=== PATIENT | female | born 1975 | race Caucasian/White ===

== ENCOUNTER 2016-08-15 20:06 | Emergency (ER) | payer BC ==
[~2016-08-15 20:06] MED LIST: Iopamidol 370 76% 100 ML VIAL ONE
[2016-08-15] MEDS ORDERED: Mag-Al Plus 1200 MG/1200 MG/120 MG/30 ML UDCUP ONE ×2 (20:12→20:14)
[2016-08-15] MEDS ORDERED: Lidocaine Viscous Sol 2% 15 ml UD Cup ONE (20:12)
[2016-08-15] MEDS ORDERED: Fentanyl 100 MCG/2 ML VIAL ONE ×2 (20:20→20:44)
[2016-08-15] MEDS ORDERED: Pantoprazole 40 MG VIAL ONE (20:23)
[2016-08-15] MEDS ORDERED: Ondansetron HCl/PF 4 MG/2 ML Vial ONE (20:25)
[2016-08-15 20:39] LABS: #Lymphocytes 1.2 thou/uL (1.20-3.40); #Monocytes 0.6 thou/uL (0.11-0.59); %Basophils 0.4 % (0.0-1.0); %Eosinophils 0.2 % (0.0-10.0); %Lymphocytes 9.1 % (21.0-51.0); %Monocytes 4.8 % (0.0-10.0); %Neutrophils 85.6 % (42.0-75.0); Hemoglobin 14.9 g/dL (12.0-16.0); Mean Corpuscular HGB CONC 32.1 g/dL (32.0-36.0); Mean Corpuscular Hemoglobin 31.3 pg (27.0-31.0); Mean Corpuscular Volume 97.4 fl (81.0-99.0); Mean Platelet Volume 5.8 fL (7.4-10.4); Platelet Count 414 thou/uL (130-400); RBC Distribution Width 12.3 % (11.5-14.5); Red Blood Cell (RBC) Count 4.77 mill/uL (4.20-5.40); White Blood Cell (WBC) Count 12.8 thou/uL (4.8-10.8)
[2016-08-15] MEDS ORDERED: Promethazine HCl 25 MG/ML VIAL ONE (20:46)
[2016-08-15] MEDS ORDERED: Sodium Chloride 0.9% 100 ML ONE (20:47)
[2016-08-15 20:51] LABS: ALT (SGPT) 562 U/L (0-55); AST (SGOT) 489 U/L (5-34); Albumin 4.5 g/dL (3.5-5.0); Alkaline Phosphatase 173 U/L (40-150); Anion Gap 19 mmol/L (10-20); BUN (Urea Nitrogen) 11 mg/dL (7.0-18.7); Bilirubin, Total 2.3 mg/dL (0.2-1.2); Calc. Creatinine Clearance 0 mL/min (70-130); Calcium 9.4 mg/dL (7.8-10.44); Carbon Dioxide 25 mmol/L (22-29); Chloride 104 mmol/L (98-107); Estimated GFR-MDRD 70; Globulin 3.8 g/dL (2.4-3.5); Glucose 140 mg/dL (70-105); Lipase 38 U/L (8-78); Potassium 4.1 mmol/L (3.5-5.1); Protein, Total 8.3 g/dL (6.0-8.3); Sodium 144 mmol/L (136-145)
[2016-08-15 21:21] LABS: Blood, Urine Trace (Negative); Clarity Clear (Clear); Glucose, Urine (Dipstick) Negative (Negative); Leukocyte Negative (Negative); Nitrite Negative (Negative); Protein, Urine (Dipstick) 30 mg/dL (Neg-Trace); Specific Gravity, Urine 1.015 (1.005-1.030); pH, Urine 8.5 (5.0-9.0)
[2016-08-15 21:29] LABS: Bilirubin Small (Negative); Icto Positive (Negative)
[2016-08-15 21:30] LABS: Amphetamine Not Detected (NotDetected); Bacteria/HPF None Seen HPF (None Seen); Barbiturates Screen Not Detected (NotDetected); Benzodiazepine Screen Not Detected (NotDetected); Cocaine Metabolite Screen Not Detected (NotDetected); Crystals/HPF 2+ AMORPH PHOS HPF (Negative); Medtox Control Line Valid? VALID (VALID); Methadone Not Detected (NotDetected); Methamphetamine Not Detected (NotDetected); Opiate Screen Not Detected (NotDetected); Oxycodone Screen Not Detected (NotDetected); Phencyclidine (PCP) Not Detected (NotDetected); RBC/HPF 0-3 HPF (0-3); THC/Cannabinoid Screen Not Detected (NotDetected); Tricyclic Screen Not Detected (NotDetected); WBC/HPF None Seen HPF (0-3)
--- NOTE | 2016-08-15 22:20 | CT ---
CT ABDOMEN AND PELVIS WITH CONTRAST: Comparison: None. History: Upper abdominal pain starting this afternoon in the mid sternal region. Technique: Multiple contiguous axial images were obtained in a CT of the abdomen and pelvis with co ntrast. Coronal reformats were performed. FINDINGS: There are calcified gallstones seen in the gallbladder. The common bile duct is enlarged measuring 10 mm. This tapers abruptly in the region of the head of the pancreas. No pancreatic head mass is seen. There is central intrahepatic biliary dilatation. No calcified gallstone is seen within the common bile duct. No focal liver masses are seen. The kidneys, adrenal glands, spleen, and pancreas are unremarkable. No free air or free fluid are seen in the abdomen or pelvis. There appears to be stranding change i n the pelvis surrounding the cervix. The reproductive organs are otherwise unremarkable. The large and small bowel are unremarkable. The appendix is normal. No abnormal or pelvic lymphadenopathy a re seen. The osseous structures, visualized inferior thorax, and abdominal wall soft tissues are unremarkable . IMPRESSION: 1. Cholelithiasis. 2. There is biliary dilatation. Although a calcified gallstone is not seen within the common bile duct, a noncalcified gallstone could be present as a cause for this dilatation. A right upper quadr ant abdominal ultrasound is recommended for further evaluation. 3. Standing changes surround the cervix . This could be secondary to pelvic inflammatory disease. Correlate with physical exam. POS: JULIAN
== END 2016-08-15 22:45 | disposition short-term general hospital (02) ==
LOC: EDBD 20:06 → NAV ERS 20:06
DX: K83.8 Other specified diseases of biliary tract (principal); R94.5 Abnormal results of liver function studies; Z79.899 Other long term (current) drug therapy
CPT/HCPCS: 36415; 74177; 80053; 80306; 81003; 81015; 83690; 85025; 86677; 93005; 96365; 96375; C9113; J2405; J2550; J3010